=== PATIENT | female | born 1980 | race Caucasian/White ===

== ENCOUNTER 2022-01-14 11:45 | Outpatient (CLI) | payer MEDICAID | END 2022-01-14 11:46 | disposition home or self-care (01) | LOC: BICULT 11:45 | PROVIDERS: ATTEND Physician Assistant | DX: N63.10 Unspecified lump in the right breast, unspecified quadrant (principal); R10.2 Pelvic and perineal pain; R93.89 Abnormal findings on diagnostic imaging of other specified body structures | CPT/HCPCS: 76856; 77066; G0279 ==